=== PATIENT | male | born 1995 | race Caucasian/White ===

== ENCOUNTER 2019-12-16 15:51 | Emergency (ER) | payer OTHER ==
[~2019-12-16] VITALS: Ht 162.6 cm; Wt 76.9 kg
[2019-12-16 15:52] VITALS: BP 136/82
[2019-12-16] MEDS ORDERED: AZITHROMYCIN 250MG TABLET PO ONE (16:30)
[2019-12-16] MEDS ORDERED: cefTRIAXone SOD 250MG VIAL (J0696 PER 250MG) IM ONE (16:30)
[2019-12-16] MEDS ORDERED: LIDOCAINE 1% SDV 5ML VIAL DILUENT ONE (16:30)
[2019-12-16 18:14] LABS: CHLAMYDIA DNA AMPLIFICATION NEGATIVE (NEGATIVE); GC DNA AMPLIFICATION NEGATIVE (NEGATIVE)
== END 2019-12-16 16:34 | disposition home or self-care (01) ==
LOC: M ED 15:51
DX: Z20.2 Contact with and (suspected) exposure to infections with a predominantly sexual mode of transmission (principal)
CPT/HCPCS: 87661; 99282; J0696